=== PATIENT | female | born 1965 | race African-American/Black ===

== ENCOUNTER 2017-02-24 07:17 | Outpatient (CLI) | payer MEDICAID | END 2017-02-24 07:18 | disposition home or self-care (01) | LOC: BICMAMMO 07:17 | PROVIDERS: ATTEND Internal Medicine Medical Oncology | DX: N63.0 Unspecified lump in unspecified breast (principal) | CPT/HCPCS: 77066; G0204; G0279 ==

== ENCOUNTER → 2017-03-11 | Day surgery (SDC) | payer OTHER ==
--- NOTE | 2017-03-11 08:39 | MMO ---
STEREOTACTIC GUIDED BIOPSY RIGHT BREAST MICROCALCIFICATIONS SURGICAL SPECIMEN MAMMOGRAPHY RIGHT DIAGNOSTIC MAMMOGRAM POST BIOPSY: History: Abnormal mammogram. Microcalcifications. Prior right breast cancer. FINDINGS: After explaining the procedure and answering all questions, the suspicious microcalcification at the lateral aspect of the right breast were visualized from a superior approach. Sterile technique, buffe red local anesthesia, stereotactic guidance, and a superior approach were used to carefully advance t he tip of a 12 gauge vacuum assisted needle to the microcalcification cluster. Position was confirmed with stereotactic imaging. A total of 18 samples were obtained. Surgical specimen mammography confirms microcalcifications in the specimens. Localization clip was pl aced in the biopsy bed through the needle. Needle was removed. Patient tolerated the procedure well a nd was eventually discharged in good condition. Post procedure mammography shows heterogeneously dense fibroglandular tissue and scattered microcalci fications. Localization clip is present at the lateral aspect of the right breast where some microcal cifications have been removed. IMPRESSION: Technically successful stereotactic guided biopsy of right breast microcalcifications. BIRADS categor y 4 - pathology is pending. POS: [facility]
== END ==
LOC: BICMAMMO 06:40
PROVIDERS: ATTEND Internal Medicine Medical Oncology
PROC: 0H9T3ZX Drainage of Right Breast, Percutaneous Approach, Diagnostic (ICD-10-PCS; principal; 2017-03-11)
DX: D24.1 Benign neoplasm of right breast (principal); I10 Essential (primary) hypertension; E78.00 Pure hypercholesterolemia, unspecified; J45.909 Unspecified asthma, uncomplicated; E11.9 Type 2 diabetes mellitus without complications; Z88.8 Allergy status to other drugs, medicaments and biological substances; Z79.84 Long term (current) use of oral hypoglycemic drugs; Z79.82 Long term (current) use of aspirin; Z79.899 Other long term (current) drug therapy; Z98.890 Other specified postprocedural states; Z85.3 Personal history of malignant neoplasm of breast
CPT/HCPCS: 19081; 76098; 88305; 88341; 88342; G0206-RT